=== PATIENT | female | born 1940 | race Caucasian/White ===

== ENCOUNTER 2023-09-23 07:35 | Emergency (ER) | payer MEDICARE, SELFPAY ==
[2023-09-23 07:38] VITALS: BP 144/71
[2023-09-23 08:02] VITALS: BP 138/69
[2023-09-23 08:04] VITALS: BMI 17.1
[2023-09-23 08:15] LABS: COVID-19 Antigen Negative (Negative)
[2023-09-23] MEDS: NSS 500 IV (09:09)
[2023-09-23 09:24] VITALS: BP 155/68
[2023-09-23 09:25] LABS: % Basophils 0.2 % (0-2); % Eosinophils 0.2 % (0-6); % Lymphocytes 11.9 % (20.5-51.1); % Monocytes 5.3 % (1.7-9.3); % Neutrophils 81.4 % (42.2-75.2); Absolute Immature Granulocytes 0.1 10^3/uL (0-0.05); Absolute Lymphocytes 1.5 10^3/uL (1.2-3.4); Absolute Monocytes 0.7 10^3/uL (0.1-0.6); Absolute Neutrophils 10.1 10^3/uL (1.4-6.5); Hematocrit 37.9 % (37.0-47.0); Mean Corp Hgb Conc. 34.3 g/dL (33.0-37.0); Mean Corpuscular Hgb 28.4 pg (27.0-31.0); Mean Corpuscular Volume 82.8 fL (81.0-99.0); Mean Platelet Volume 9.2 fL (7.4-10.4); Nucleated Red Blood Cells % 0 %; Platelet Count 273 10^3/uL (130-400); Red Blood Cell Count 4.58 10^6/uL (4.20-5.40); Red Cell Dist. Width 14.2 % (11.5-14.5); White Blood Cell Count 12.5 10^3/uL (4.8-10.8)
[2023-09-23 09:38] LABS: ALT (SGPT) 21 U/L (0-35); AST (SGOT) 39 U/L (14-36); Albumin 3.4 g/dl (3.5-5.0); Alkaline Phosphatase 64 U/L (38-126); Blood Urea Nitrogen 17 mg/dl (7-17); Calcium 8.5 mg/dl (8.4-10.2); Carbon Dioxide 32 mmol/L (22-30); Chloride 94 mmol/L (98-107); Estimated Creatinine Clearance 46 ml/min; Glucose 85 mg/dl (70-99); Potassium 3.1 mmol/L (3.5-5.1); Sodium 129 mmol/L (135-145); Total Bilirubin 1.1 mg/dl (0.2-1.3); Total Protein 6.2 g/dl (6.3-8.2); eGFR > 60.00
--- NOTE | 2023-09-23 09:54 | ED.GENMED ---
History of Present Illness
General
Chief Complaint: Breathing Problem
Source: patient
Exam Limitations: none
Time Seen by Provider: 09/23/23 07:49
Nursing documentation reviewed up to this point in time: agreed with
Travel History
Have you had any contact with someone who has COVID-19?: No
Do you have any symptoms of coronavirus? Fever > 100 degrees, chills, cough, shortness of breath, sore throat, loss of taste or smell, muscle aches, or headache?: Yes
Symptoms:: fever, cough
History of Present Illness
History of Present Illness:
PT IS A 83 Y/O f WITH H/O wpw, htn, hld, COPD NOT ON O2
here with uri sxs
started about 10 days ago with cough and presumed she had bronchitis, her was also sick. she said the cough was keeping her up so she contacted her PCP who called her in zithromax and medrol dose jimenez on 09/15
pt completed both medications and felt better but then 2 days ago she started having fever to 102 t max and aches, fatigue, mild SOB, nausea, diarrhea, and the cough was worse
it is dry mostly
no pleuritic pain, ches tpain, leg swelling, vomiting
Past History
Past History
ED Past Medical History: Asthma, COPD, HTN, Hypercholesterolemia, Other (PNA) and Other (tracheomalacia)
ED Past Surgical History: Appendectomy, Orthopedic and Tonsilectomy
Social History
Tobacco: Non-smoker
Alcohol: None
Drug: None
Personal:
Living: with family
Employment: Retired
Family History
Family History: Unable to obtain
Review of Systems
Review of Systems
Allergies reviewed?: Yes
All Other Systems: Not applicable
Phy Exam
Physical Exam
Physical Exam:
GENERAL: Alert , in no apparent distress, nontoxic
EYE: pupils equal and reactive
NECK: Supple
ENT: b/l TM s clear, pharynx erythematous but no tonsillar hypertrophy or exudates
CARDIAC: Regular rate and rhythm, no edema
LUNGS: rhonchorous sounding cough, no wheezes, no tachypnea, no resp distress;
ABDOMEN: Soft, without focal tenderness, no r/g, no cvat, normal bowel sounds
NEUROLOGICAL: Alert and oriented, no focal neuro deficits
SKIN: Warm and dry, skin intact.
MUSCULOSKELETAL: No edema, well perfused.
PSYCH: Normal and appropriate interaction.
Scores
Heart Failure Risk
Heart Failure Risk Score: Not Applicable
Course
Orders/Labs/Results
Orders:
Orders
09/23/23 07:53
COVID-19 Antigen Urgent
Source: Nasal Swab
Influenza A+B Rapid Molecular Urgent
MARYANNE Source: Nasal Swab
Specimen Description:
09/23/23 08:04
Electrocardiogram (*1) Urgent
Reason for Study: Shortness of Breath
EKG- Treatment ONCE
09/23/23 08:59
0.9% Sodium Chloride 500 ml [Nss] 500 ml IV BOLUS
CR Chest - 2 Views Urgent
Comment:
Reason For Exam: copd, fever
09/23/23 09:08
Complete Blood Count/With Diff Urgent
Comprehensive Metabolic Panel Urgent
Procalcitonin Urgent
PCT Algorithmm Indication: Respiratory
09/23/23 10:37
Potassium Chloride [KCl] 20 meq PO NOW STA
09/23/23 10:38
Oseltamivir Phosphate [Tamiflu] 75 mg PO NOW STA
Prednisone [Deltasone] 40 mg PO NOW STA
Abnormal Lab Results
09/23/23
09:08
WBC 12.5 H 10^3/uL
(4.8-10.8)
Abs Immat Gran (auto) 0.1 H 10^3/uL
(0-0.05)
Absolute Neuts (auto) 10.1 H 10^3/uL
(1.4-6.5)
Absolute Monos (auto) 0.7 H 10^3/uL
(0.1-0.6)
Immature Gran % 1.0 H %
(0-0.5)
Neutrophils % 81.4 H %
(42.2-75.2)
Lymphocytes % 11.9 L %
(20.5-51.1)
Sodium 129 L mmol/L
(135-145)
Potassium 3.1 L mmol/L
(3.5-5.1)
Chloride 94 L mmol/L
(98-107)
Carbon Dioxide 32 H mmol/L
(22-30)
Creatinine 0.5 L mg/dL
(0.6-1.0)
AST 39 H U/L
(14-36)
Total Protein 6.2 L g/dl
(6.3-8.2)
Albumin 3.4 L g/dl
(3.5-5.0)
09/23/23 09:08
09/23/23 09:08
Vital Signs
Initial and Last Documented VS:
Initial Vital Signs
Temp Pulse Resp BP Pulse Ox
98.2 F 109 18 144/71 98
09/23/23 07:38 09/23/23 07:38 09/23/23 07:38 09/23/23 07:38 09/23/23 07:38
Last Documented Vital Signs
Temp Pulse Resp BP Pulse Ox
98.9 F 85 16 167/78 98
09/23/23 08:13 09/23/23 10:56 09/23/23 10:56 09/23/23 10:56 09/23/23 10:56
MDM/Problems Addressed
Differential Diagnosis Includes:
pneumonia, FLU, covid, copd exac
MDM/Problems Addressed:
83 y/o F from [facility]
h/e copd
no o2
here with cough.uri x 10 days but better briefly after steroids and abx but got worse 2 days ago
fever, chills, fatigue, cough, diarhea
pt has no wheezing
no sob today, felt it las tnight but resolved with neb
Patient appears nontoxic, has a borderline temperature of 99.1, no hypoxia, no tachypnea, rhonchorous deep sounding cough. Her EKG is nonischemic, She has some flattening in V1 and V2 which is unchanged from baseline. Her chest x-ray was
independently reviewed by me and not found to have any infiltrate, radiology report reads that there is a area in the left base that could be atelectasis and less likely an early pneumonia. Patient tested positive for influenza A, she is mildly
hyponatremic and hypokalemic. I believe she was a little bit dehydrated and she was given some IV fluids. Discussed the case with ED attending. It is most likely that the patient got the flu 2 days ago when she became acutely symptomatic again.
This is less likely a pneumonia. Her procalcitonin is negative. Patient does have a leukocytosis which is expected after steroids and with this infection. She has mild hyponatremia, patient told to drink fluids with electrolytes. Her hypokalemia
is mild and 3.1 she will be given a dose of oral potassium here. Patient is requesting steroids because they tend to help her cough the most. Will give her 1 dose here and then 2 more doses for the next 2 days. I also discussed risk factors and
benefits for Tamiflu, patient is agreeable to starting the Tamiflu. She knows to stop it if she gets bad diarrhea. Patient is very adamantly requesting to be discharged home, she says she does not feel like she needs to be hospitalized. Follow-up
with primary encouraged, return precautions given
*Critical Care Note
Total Time (30-74mins, 75-104mins- exclusive of procedures): Not Applicable
ED Attending Note
-
Portions of this chart may have been created with voice recognition software.� Occasional wrong word or��sound alike� substitutions may have occurred due to the inherent limitations of voice recognition software.
Discharge Plan
Departure
Patient Disposition: Home (Routine Discharge)
Date of Disposition: 09/23/23
Time of Disposition: 10:45
Patient with high blood pressure during this ER visit?: Yes
Condition: Fair
Discharge Problem:
Influenza A, Hyponatremia
Instructions: Flu, Adult (DC), Hyponatremia (DC)
Prescriptions:
New
oseltamivir [Tamiflu] 75 mg capsule
75 mg PO BID 5 Days Qty: 10 0RF
prednisone 20 mg tablet
40 mg PO DAILY 2 Days Qty: 4 0RF
No Action
albuterol sulfate 1 PUFF HFA aerosol inhaler
1 puff inhalation R Q4HPRN PRN (Reason: sob)
Incruse Ellipta 62.5 MCG blister with device
2 puff IH R DAILY
atorvastatin 20 MG tablet
20 mg PO DAILY@1700
oxybutynin chloride 5 MG tablet extended release 24hr
5 mg PO DAILY@1700
irbesartan 300 MG tablet
300 mg PO DAILY@1700
Lumigan 1 DROP drops
1 drp BOTH EYES HS
guaifenesin [Mucus Relief ER] 600 MG tablet extended release 12hr
600 mg PO DAILY@1700
fluticasone furoate-vilanterol [Breo Ellipta] 1 EACH blister with device
2 puff IH R DAILY
albuterol sulfate 2.5 mg /3 mL (0.083 %) solution for nebulization
2.5 mg inhalation Q4H PRN (Reason: shortness of breath or wheezing) Qty: 90 2RF
Referrals:
UNKNOWN - PT DOES,NOT KNOW [Family Provider] -
Activity Restrictions/Additional Instructions:
Your symptoms are likely due to influenza A which is probably an acute infection from 2 days ago when he started spiking fevers.
Does not appear that you have pneumonia today.
Start Tamiflu twice a day for 5 days
starting tomorrow you can take prednisone once a day for 2 days. You were given a dose here. You can use your inhaler or your nebulizer every 4-6 hours for your cough. Follow-up with your doctor in the next week. Always consider returning for
worsening symptoms especially shortness of breath, any chest pain, fatigue, passing out, severe diarrhea etc. The Tamiflu can cause diarrhea. If this is too intense for you please stop it. You will not harm yourself by stopping it early.
Interventions
Interventions:
*Risk Screen - Suicide Last Done: 09/23/23 07:38
*General Assessment Last Done: 09/23/23 07:38
*Neglect/Abuse Screening Last Done: 09/23/23 07:38
ED- Fall Risk Assessment Last Done: 09/23/23 08:05
*ED COVID-19 Vaccine History Last Done: 09/23/23 07:44
*Nursing Disposition Last Done: 09/23/23 11:07
ED- Cardiac Assessment Last Done: 09/23/23 08:05
ED- Pulmonary Assessment Last Done: 09/23/23 08:05
Discharge Date and Time
Discharge Date/Time: 09/23/23 11:07
[2023-09-23 10:00] VITALS: BP 169/76
[2023-09-23 10:18] LABS: Procalcitonin < 0.05 ng/ml (0.0-0.25)
[2023-09-23] MEDS: KCL 20 MEQ PO (10:52)
[2023-09-23] MEDS: DELTASONE 40 MG PO (10:52)
[2023-09-23] MEDS: TAMIFLU 75 MG PO (10:52)
[2023-09-23 10:56] VITALS: BP 167/78
== END 2023-09-23 11:07 | disposition home or self-care (01) ==
LOC: EMR 07:35
PROVIDERS: Physician Assistant; EMERGENCY PHYSICIAN Emergency Medicine
DX: J10.1 Influenza due to other identified influenza virus with other respiratory manifestations (principal); E87.1 Hypo-osmolality and hyponatremia; I10 Essential (primary) hypertension; E78.00 Pure hypercholesterolemia, unspecified; R05.9 Cough, unspecified; J44.1 Chronic obstructive pulmonary disease with (acute) exacerbation; E86.0 Dehydration; E87.6 Hypokalemia; Z90.49 Acquired absence of other specified parts of digestive tract
CPT/HCPCS: 99283; 96360; 71046; 80053; 84145; 85025; 87502; 87811; 93005

== ENCOUNTER 2023-09-30 22:28 | Inpatient (IN) | payer MEDICARE, SELFPAY ==
[2023-09-30] VITALS (9 sets, daily range): BP systolic 114–174; BP diastolic 58–75; BMI 17.7
[2023-09-30] MEDS: NSS 500 IV (19:27)
--- NOTE | 2023-09-30 19:32 | ED.GENMED ---
History of Present Illness
General
Chief Complaint: Cold/Flu/URI Symptoms
Source: patient
Exam Limitations: none
Time Seen by Provider: 09/30/23 18:04
Nursing documentation reviewed up to this point in time: agreed with
Travel History
Have you had any contact with someone who has COVID-19?: No
Do you have any symptoms of coronavirus? Fever > 100 degrees, chills, cough, shortness of breath, sore throat, loss of taste or smell, muscle aches, or headache?: No
History of Present Illness
History of Present Illness:
The patient is a pleasant 83-year-old female comes in with complaints of persistent fever, nausea and bodyaches for about 1 week. Patient reports she tested positive for influenza. She denies vomiting but states she just feels nauseous. She
reports an ongoing cough which seems slightly better than it was a few days ago. She denies diarrhea. She reports she has not taken any Tylenol or Motrin. Patient reports she is able to drink fluids. She denies any urinary symptoms such as
burning or frequency. She denies abdominal pain. She denies difficulty breathing.
Past History
Past History
ED Past Medical History: Asthma, COPD, HTN, Hypercholesterolemia, Other (PNA) and Other (tracheomalacia)
ED Past Surgical History: Appendectomy, Orthopedic and Tonsilectomy
Social History
Tobacco: Non-smoker
Alcohol: None
Drug: None
Personal:
Living: with family
Employment: Retired
Family History
Family History: Unable to obtain
Review of Systems
Review of Systems
Allergies reviewed?: Yes
All Other Systems: ROS reviewed and negative except as documented in HPI and ROS
Constitutional: Reports fever and fatigue
EENT: Reports no symptoms
Respiratory: Reports cough
Cardiac: Reports no symptoms
ABD/GI: Reports nausea and anorexia
: Reports no symptoms
Musculoskeletal: Reports muscle stiffness
Skin: Reports no symptoms
Neurological: Reports no symptoms
Endocrine: Reports no symptoms
Hematologic/Lymphatic: Reports no symptoms
Psychiatric: Reports no symptoms
Phy Exam
Physical Exam
Physical Exam:
Physical Exam
General: no apparent distress, not acutely ill. Nontoxic, conversational
Neck: supple. no meningeal signs. normal psoterior pharynx
Heart: Tachycardic
Lungs: no acute respiratory distress. Coughing but speaks in full sentences. Mild rhonchi. No wheezing no tachypnea
Abdomen: normal bowel sounds. not tender. no CVAT
Neuro: alert and oriented. no focal neurological deficits
Skin: no rash
Psychiatric: well kept. interactive and cooperative
Extremities: no edema. no calf tenderness. negative homans. good distal pulses
Course
Orders/Labs/Results
Orders:
Orders
09/30/23 18:55
Ketorolac [Toradol] 15 mg IV NOW STA
09/30/23 18:56
0.9% Sodium Chloride 500 ml [Nss] 500 ml IV BOLUS
Acetaminophen [Tylenol] 650 mg PO NOW STA
09/30/23 18:57
CR Chest - 2 Views Urgent
Comment:
Reason For Exam: cough
09/30/23 19:28
Complete Blood Count/With Diff Urgent
Comprehensive Metabolic Panel Urgent
09/30/23 19:29
Ondansetron Injectable [Zofran] 4 mg IV NOW STA
Abnormal Lab Results
09/30/23
19:28
WBC 16.3 H 10^3/uL
(4.8-10.8)
RBC 4.09 L 10^6/uL
(4.20-5.40)
Hgb 11.4 L g/dL
(12.0-16.0)
Hct 33.1 L %
(37.0-47.0)
MCV 80.9 L fL
(81.0-99.0)
Abs Immat Gran (auto) 0.1 H 10^3/uL
(0-0.05)
Absolute Neuts (auto) 14.0 H 10^3/uL
(1.4-6.5)
Absolute Lymphs (auto) 1.0 L 10^3/uL
(1.2-3.4)
Absolute Monos (auto) 1.0 H 10^3/uL
(0.1-0.6)
Immature Gran % 0.7 H %
(0-0.5)
Neutrophils % 86.3 H %
(42.2-75.2)
Lymphocytes % 6.4 L %
(20.5-51.1)
Sodium 125 L mmol/L
(135-145)
Potassium 3.2 L mmol/L
(3.5-5.1)
Chloride 94 L mmol/L
(98-107)
BUN 22 H mg/dl
(7-17)
Creatinine 0.4 L mg/dL
(0.6-1.0)
Glucose 111 H mg/dl
(70-99)
Calcium 7.8 L mg/dl
(8.4-10.2)
AST 46 H U/L
(14-36)
Total Protein 5.6 L g/dl
(6.3-8.2)
Albumin 2.6 L g/dl
(3.5-5.0)
09/30/23 19:28
09/30/23 19:28
Vital Signs
Initial and Last Documented VS:
Initial Vital Signs
Temp Pulse BP Pulse Ox
99.3 F 106 145/75 84
09/30/23 17:02 09/30/23 17:02 09/30/23 17:02 09/30/23 17:02
Last Documented Vital Signs
Temp Pulse Resp BP Pulse Ox
99.6 F 93 25 145/59 97
09/30/23 20:33 09/30/23 20:00 09/30/23 20:00 09/30/23 20:31 09/30/23 20:45
MDM/Problems Addressed
Differential Diagnosis Includes:
Dehydration, pneumonia, acute renal failure, viral syndrome
MDM/Problems Addressed:
Patient presents with acute fatigue, cough, and bodyaches
Chronic conditions affecting care:
Given patient has a history of COPD she could be at increased risk of pneumonia
Acute Exacerbation and/or Progression of Chronic Illness:
Patient may have shortness of breath and cough related to COPD exacerbation
Acute Exacerbation and/or Progression of Chronic Illness: HTN
*Radiology
Radiology exam reviewed: preliminary read by ED provider (Bilateral infiltrates seen. Chest x-ray read by me)
*Pulse Oximetry
Patient hypoxic: yes
*EKG
Interpreted by ED Provider?: NA
*Supervisor Type Photography Interpretation
Rate: normal
Interpretation: normal
Rhythm: sinus
*Critical Care Note
Total Time (30-74mins, 75-104mins- exclusive of procedures): 35 minutes
comment:
35 minutes of critical care given to the patient including frequent reassessments of her pulse ox, reviewing her prior chest x-ray and chest x-ray from [facility] which now shows pneumonia, reviewing her blood work, as well as counseling the patient
Data Reviewed
Review of Other/Old Records Reveals: Labs (Labs from 09/23/23 show influenza A positive and COVID-negative)
Source: patient
Patient Management
Social determinants of health affecting care: Living situation
Discussion with other providers: Hospitalist
ED Attending Note
-
Portions of this chart may have been created with voice recognition software.� Occasional wrong word or��sound alike� substitutions may have occurred due to the inherent limitations of voice recognition software.
Discharge Plan
Departure
Patient Disposition: Admit
Date of Disposition: 09/30/23
Time of Disposition: 21:08
Admit to: Med/Surg
Presentation/result/management discussed w/ accepting MD/DO: Hospitalist
Patient with high blood pressure during this ER visit?: Yes
Condition: Good
Covid-19: Negative COVID-19
Discharge Problem:
Acute hypoxic respiratory failure, Pneumonia
Prescriptions:
No Action
albuterol sulfate 1 PUFF HFA aerosol inhaler
1 puff inhalation R Q4HPRN PRN (Reason: sob)
Incruse Ellipta 62.5 MCG blister with device
2 puff IH R DAILY
atorvastatin 20 MG tablet
20 mg PO DAILY@1700
oxybutynin chloride 5 MG tablet extended release 24hr
5 mg PO DAILY@1700
irbesartan 300 MG tablet
300 mg PO DAILY@1700
Lumigan 1 DROP drops
1 drp BOTH EYES HS
guaifenesin [Mucus Relief ER] 600 MG tablet extended release 12hr
600 mg PO DAILY@1700
fluticasone furoate-vilanterol [Breo Ellipta] 1 EACH blister with device
2 puff IH R DAILY
albuterol sulfate 2.5 mg /3 mL (0.083 %) solution for nebulization
2.5 mg inhalation Q4H PRN (Reason: shortness of breath or wheezing) Qty: 90 2RF
oseltamivir [Tamiflu] 75 mg capsule
75 mg PO BID 5 Days Qty: 10 0RF
prednisone 20 mg tablet
40 mg PO DAILY 2 Days Qty: 4 0RF
Referrals:
Stone Guerrier MD [Family Provider] -
Interventions
Interventions:
*Risk Screen - Suicide Last Done: 09/30/23 18:09
*General Assessment Last Done: 09/30/23 18:09
*Neglect/Abuse Screening Last Done: 09/30/23 18:09
ED- Fall Risk Assessment Last Done: 09/30/23 18:09
*ED COVID-19 Vaccine History Last Done: 09/30/23 17:05
ED- Pulmonary Assessment Last Done: 09/30/23 18:09
[2023-09-30 19:34] LABS: % Basophils 0.2 % (0-2); % Eosinophils 0.1 % (0-6); % Immature Granulocytes 0.7 % (0-0.5); % Lymphocytes 6.4 % (20.5-51.1); % Monocytes 6.3 % (1.7-9.3); % Neutrophils 86.3 % (42.2-75.2); Absolute Immature Granulocytes 0.1 10^3/uL (0-0.05); Hematocrit 33.1 % (37.0-47.0); Hemoglobin 11.4 g/dL (12.0-16.0); Mean Corp Hgb Conc. 34.4 g/dL (33.0-37.0); Mean Corpuscular Hgb 27.9 pg (27.0-31.0); Mean Corpuscular Volume 80.9 fL (81.0-99.0); Mean Platelet Volume 9.1 fL (7.4-10.4); Nucleated Red Blood Cells % 0 %; Platelet Count 392 10^3/uL (130-400); Red Blood Cell Count 4.09 10^6/uL (4.20-5.40); Red Cell Dist. Width 13.5 % (11.5-14.5); White Blood Cell Count 16.3 10^3/uL (4.8-10.8)
[2023-09-30] MEDS: ZOFRAN 4 MG IV (19:35)
[2023-09-30] MEDS: TORADOL 15 MG IV (19:35)
[2023-09-30] MEDS: TYLENOL 650 MG PO (19:36)
[2023-09-30 19:47] LABS: ALT (SGPT) 22 U/L (0-35); AST (SGOT) 46 U/L (14-36); Albumin 2.6 g/dl (3.5-5.0); Alkaline Phosphatase 72 U/L (38-126); Blood Urea Nitrogen 22 mg/dl (7-17); Calcium 7.8 mg/dl (8.4-10.2); Carbon Dioxide 26 mmol/L (22-30); Chloride 94 mmol/L (98-107); Glucose 111 mg/dl (70-99); Potassium 3.2 mmol/L (3.5-5.1); Sodium 125 mmol/L (135-145); Total Bilirubin 1.3 mg/dl (0.2-1.3); Total Protein 5.6 g/dl (6.3-8.2); eGFR > 60.00
--- NOTE | 2023-09-30 21:46 | HPS.HSE ---
Family Physician
-
Family Physician: Stone Guerrier
Chief Complaint
-
Shortness of breath, cough and fever
History of Present Illness
83-year-old female with history of COPD and was diagnosed with influenza A last week in the hospital lives independently at home with her , presented back to the hospital complaining of generalized weakness, malaise, fever and chills and
cough productive of clear yellowish phlegm in the last few day. Overall feeling her cough is better despite coming back to the hospital, denies any chest pain admit fatigue and poor appetite denies any urinary or GI symptoms,
She was treated with Tamiflu, steroids and breathing treatment and discharged home from the ER.
Workup in the ER basically concerning for infiltration of the both leg. X-ray while white cell count is 16,000 and sodium level is 125.
She is awake, alert and oriented,Her oxygen saturation was 84 on room air. Improved with oxygen supplement
Medical History
Past Medical History
Past Medical History: Reports Other
Additional Past Medical History:
Past medical history reviewed:
COPD
Pretension
Dyslipidemia
Hyperactive bladder
Social history: Lives at home with independently, no smoking alcohol use
Family history: Reviewed and noncontributory
Past Surgical History: Reports Other
Social History
Tobacco: Other
Family History
Family History: Other
Allergies / Home Medications
Allergies reflects when Allergies were last updated in [facility].
Home Medications with original date entered in [facility]
Allergy/Medication List:
Allergies
Allergy/AdvReac Type Severity Reaction Status Date / Time
levofloxacin [From Levaquin] Allergy Rash Verified 09/30/23 17:07
streptomycin Allergy Rash Verified 09/30/23 17:07
sulfamethoxazole Allergy Rash Verified 09/30/23 17:07
[From Bactrim]
trimethoprim [From Bactrim] Allergy Rash Verified 09/30/23 17:07
Home Medications
albuterol sulfate 90 mcg/actuation aerosol inhaler 1 puff inhalation R Q4HPRN PRN sob 11/08/13
umeclidinium 62.5 mcg/actuation blister powder for inhalation (Incruse Ellipta) 2 puff IH R DAILY 06/12/18
atorvastatin 20 mg tablet 20 mg PO DAILY@169904/03/19
bimatoprost 0.01 % eye drops (Lumigan) 1 drp BOTH EYES HS 04/03/19
fluticasone furoate 200 mcg-vilanterol 25 mcg/dose inhalation powder (Breo Ellipta) 2 puff IH R DAILY 04/03/19
guaifenesin 600 mg tablet, extended release 12 hr (Mucus Relief ER) 600 mg PO DAILY@169904/03/19
irbesartan 300 mg tablet 300 mg PO DAILY@169904/03/19
oxybutynin chloride 5 mg tablet,extended release 24 hr 5 mg PO DAILY@169904/03/19
albuterol sulfate 2.5 mg/3 mL (0.083 %) solution for nebulization 2.5 mg (3 mL) inhalation Q4H PRN shortness of breath or wheezing #90 mL 05/31/23
oseltamivir 75 mg capsule (Tamiflu) 75 mg PO BID 5 days #10 caps 09/23/23
prednisone 20 mg tablet 40 mg PO DAILY 2 days #4 tabs 09/23/23
Review of Systems
-
A 12 point ROS was completed and negative except as noted: Yes
Physical Exam
Vital Signs
Vital Signs
Temp Pulse Resp BP Pulse Ox
99.6 F 93 25 145/59 97
09/30/23 20:33 09/30/23 20:00 09/30/23 20:00 09/30/23 20:31 09/30/23 20:45
physical exam:
General: Awake, alert and oriented x3, not in distress and holds appropriate conversation.
HEENT: No active discharge, ecchymosis or bruising, moist lips, tongue and mucous membrane.
Eyes: No discharge or red conjunctiva, no nystagmus, pupils are reactive and equal
Neck:Supple, no JVD no bruit no goiter.
Respiratory: Normal AP contour and diameter, normal chest wall movement, normal respiratory effort, no respiratory distress,
Lungs: Diminished air entry bilaterally, bilateral wheezing and rhonchi, no crackles or rails
Heart: S1, S2 regular, normal rate, no added sound.
Gastrointestinal: Positive bowel sounds, soft, nontender, no guarding or rigidity or organomegaly
Musculoskeletal: , no chest wall abnormality or tenderness. All joints and extremities have good range of motion, no muscle tenderness or any joint swelling or tenderness.
Extremities: No pitting edema, good peripheral pulses, good range of motion
Skin: Warm and dry, no ulceration, normal color.
Neurological: Awake, alert and oriented x3, no facial droop, speech clear and comprehensive, good muscle tone, normal sensory and motor function
Psychiatric: Normal mood, normal thought and judgment, normal affect,
Physical Exam
General: Other
Laboratory Results
-
09/30/23 19:28
09/30/23 19:28
Laboratory Results
Total Bilirubin 1.3 mg/dl (0.2-1.3) 09/30/23 19:28
AST 46 U/L (14-36) H 09/30/23 19:28
ALT 22 U/L (0-35) 09/30/23 19:28
Alkaline Phosphatase 72 U/L (38-126) 09/30/23 19:28
Chest x-ray: Pending official report, show hyperinflated lung was mild patchy infiltration per MAR review, please refer to radiologist report once available.
Data Reviewed
-
Diagnostic Radiology: Image Personally Visualized and interpreted and Discussed with Patient
Lab Data: Labs Reviewed by me and Discussed with Patient
Old Records: Reviewed
Impression/Plan
-
IMPRESSION:
83-year-old female with history of COPD and recently diagnosed with influenza A, presented back to the hospital as she is still not feeling fully recovered admitting fever, chills and cough, workup in the ER concerning for sepsis with hypoxia and
leukocytosis.
Sepsis with hypoxia O2 sat was 84 and was a count 16,000 likely secondary to pneumonia.
Pneumonia
Acute hypoxic failure
Recent influenza
History of COPD
Hypertension
Hyponatremia
Moderate protein caloric malnutrition as albumin is 2.4
Hypocalcemia was corrected calcium is antonette be more than 8.5
PLAN:
Managed per sepsis protocol
IV fluid
IV Rocephin and Zithromax
Blood culture
Lactic acid
Check procalcitonin level
DuoNeb 4 times daily
Drawn 4 mg every 8 hour
Cough medication
Monitor vital sign
Recheck lab
Oxygen and try to wean off as needed
All discussed with the patient in detail expressed understanding
CODE STATUS full code
DVT prophylax Lovenox
[2023-09-30] MEDS: ROCEPHIN 1000 MG IV (21:50)
[2023-09-30] MEDS: ZITHROMAX INFUSION 250 IV (22:08)
--- NOTE | 2023-09-30 23:05 | PTCARENOTE ---
Pt arrived from ED via stretcher and ambulated to bed. Pt is AAOx3, VSS on 2L NC sating 99%, w/o complaints of pain. Pt is oriented to room resting comfortably w/ call monahan within reach.
[2023-09-30] MEDS: NSS 1000 IV (23:38)
[2023-09-30] MEDS: MUCINEX 600 MG PO (23:56)
[2023-09-30] MEDS: LUMIGAN 0.01% 1 DROP BOTH EYES (23:56)
[2023-09-30] MEDS: DECADRON 4 MG IV (23:57)
[2023-10-01 00:43] LABS: Lactic Acid 1.1 mmol/L (0.7-2.0)
[2023-10-01] MEDS: KCL 270 MEQ IV (01:03)
[2023-10-01 01:33] LABS: COVID-19 Antigen Negative (Negative)
[2023-10-01 04:19] LABS: Lactic Acid 0.9 mmol/L (0.7-2.0)
[2023-10-01] MEDS: DECADRON 4 MG IV ×2 (06:01→17:01)
[2023-10-01 07:07] LABS: % Basophils 0.2 % (0-2); % Immature Granulocytes 0.8 % (0-0.5); % Lymphocytes 3.4 % (20.5-51.1); % Monocytes 1.5 % (1.7-9.3); % Neutrophils 94.1 % (42.2-75.2); Absolute Immature Granulocytes 0.1 10^3/uL (0-0.05); Absolute Lymphocytes 0.4 10^3/uL (1.2-3.4); Absolute Monocytes 0.2 10^3/uL (0.1-0.6); Absolute Neutrophils 11.2 10^3/uL (1.4-6.5); Hematocrit 30.3 % (37.0-47.0); Hemoglobin 10.2 g/dL (12.0-16.0); Mean Corp Hgb Conc. 33.7 g/dL (33.0-37.0); Mean Corpuscular Hgb 28.2 pg (27.0-31.0); Mean Corpuscular Volume 83.7 fL (81.0-99.0); Mean Platelet Volume 9.5 fL (7.4-10.4); Nucleated Red Blood Cells % 0 %; Platelet Count 338 10^3/uL (130-400); Red Blood Cell Count 3.62 10^6/uL (4.20-5.40); Red Cell Dist. Width 13.5 % (11.5-14.5); White Blood Cell Count 11.9 10^3/uL (4.8-10.8)
[2023-10-01 07:48] VITALS: BP 125/65
[2023-10-01] MEDS: SPIRIVA RESPIMAT 2.5 MCG 2 PUFF INH (08:21)
[2023-10-01] MEDS: VENTOLIN NEBULES INH (09:27)
--- NOTE | 2023-10-01 10:43 | W.PN.HOSP.TC ---
Today's Communication/Plan
-
see A/P
Assessment / Plan
Assessment / Plan
83-year-old female with history of COPD and was diagnosed with influenza A last week in the hospital lives independently at home with her , presented back to the hospital complaining of generalized weakness, malaise, fever/chills and cough
productive of clear yellowish phlegm in the last few day.�
Overall feeling her cough is better despite coming back to the hospital, denies any chest pain admit fatigue and poor appetite denies any urinary or GI symptoms,
She was treated with Tamiflu, steroids and breathing treatment and discharged home from the ER.
Workup in the ER concerning for infiltration of both lungs. White cell count is 16,000 and sodium level is 125.
She is awake, alert and oriented,Her oxygen saturation was 84 on room air.� Improved with oxygen supplement
A/P:
# Sepsis POA likely due to post-viral bacterial community acquired pneumonia
# Acute hypoxic resp insufficiency
# Recent influenza infection s/p 5 days Tamiflu
# History of COPD
Cont O2 support at 1L NC and wean as tolerated, she is not on home o2
s/p IV fluid
Cont IV Rocephin and Zithromax
Check Blood culture, MRSA screen, procalcitonin level
Cont DuoNebs ATC and PRN.
decrease Decadron from 4 IV Q8H to Q12H
Cont Mucinex
Add Vest therapy
# Hypertension
BP stable
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
# Hyponatremia suspect SIADH related to CAP
Sodium level 125 today, from 129 on admission
fluid restrict to 48 oz
# hypokalemia
replete K
check mag level
# Moderate protein caloric malnutrition as albumin is 2.4
# Hypocalcemia was corrected calcium is antonette be more than 8.5
# Mild AST suspect reactive
monitor
CODE STATUS full code
DVT prophylax Lovenox SQ
Anticipated Discharge: > 48 hours
Subjective/Interval History
-
Date of Service: October 01, 2023
Objective Data
-
Labs:
Laboratory Results
10/01/23
06:31
WBC 11.9 H
Hgb 10.2 L
Hct 30.3 L
Plt Count 338
Vital Signs:
Vital Signs
Temp Pulse Resp BP Pulse Ox
36.3 C 70 16 125/65 96
10/01/23 07:48 10/01/23 08:25 10/01/23 08:25 10/01/23 07:48 10/01/23 08:25
Review of Systems
-
Respiratory: Reports Cough and Trouble Breathing
Physical Exam
-
General: Well Developed, Well Nourished, Comfortable, Respiratory Distress (mild) and Conversant
HEENT: Normocephalic, Atraumatic, Nose Appears Normal, Ears Appear Normal and Oxygen (1L NC)
Respiratory: Clear to Auscultation and Non Labored Respirations; Negative Wheezes or Accessory Resp Muscle Use
Cardiac: Regular Rhythm and S1/S2
GI: Soft, Nontender, Nondistended and Normal Bowel Sounds
Skin: Warm and Dry
Neuro: Awake, Alert, Oriented and AO x 3
Psych: Calm and Intact Judgement/Insight
Data Reviewed
-
Diagnostic Radiology: Image personally visualized and interpreted and Report Reviewed by me
Labs: Labs Reviewed by me
[2023-10-01] MEDS: MUCINEX PO (10:47)
[2023-10-01] MEDS: KCL 40 MEQ PO (11:17)
[2023-10-01] MEDS: VENTOLIN NEBULES 2.5 MG INH (11:27)
[2023-10-01] MEDS: DUONEB INH (11:33)
[2023-10-01 11:46] LABS: Magnesium 2.1 mg/dl (1.6-2.3)
[2023-10-01 12:00] LABS: Procalcitonin 0.05 ng/ml (0.0-0.25)
[2023-10-01] MEDS: DUONEB 3 ML INH ×2 (15:37→19:21)
[2023-10-01 16:54] VITALS: BP 118/64
[2023-10-01] MEDS: LIPITOR 20 MG PO (17:01)
[2023-10-01] MEDS: DITROPAN 5 MG PO (17:01)
[2023-10-01] MEDS: LOVENOX 40 MG SC (17:01)
[2023-10-01] MEDS: AVAPRO 300 MG PO (17:17)
[2023-10-01 20:00] VITALS: BP 121/56
[2023-10-01] MEDS: ROCEPHIN 1000 MG IV (21:54)
[2023-10-01] MEDS: MUCINEX 600 MG PO (21:54)
[2023-10-01] MEDS: LUMIGAN 0.01% 1 DROP BOTH EYES (21:54)
[2023-10-01] MEDS: ZITHROMAX INFUSION 250 IV (21:55)
[2023-10-01] MEDS: STERILE WATER FOR INJECTION 10 ML IV (21:55)
[2023-10-01 23:32] VITALS: BP 110/59
[2023-10-02] MEDS: DECADRON 4 MG IV (05:15)
[2023-10-02 07:15] VITALS: BP 128/62
[2023-10-02] MEDS: DUONEB 3 ML INH ×2 (07:58→11:23)
[2023-10-02 08:24] LABS: Hematocrit 29.7 % (37.0-47.0); Hemoglobin 10.1 g/dL (12.0-16.0); Mean Corpuscular Volume 82.3 fL (81.0-99.0); Mean Platelet Volume 9.6 fL (7.4-10.4); Platelet Count 444 10^3/uL (130-400); Red Blood Cell Count 3.61 10^6/uL (4.20-5.40); Red Cell Dist. Width 13.7 % (11.5-14.5); White Blood Cell Count 17.8 10^3/uL (4.8-10.8)
[2023-10-02] MEDS: MUCINEX 600 MG PO (08:35)
[2023-10-02 08:55] LABS: Sodium 135 mmol/L (135-145)
[2023-10-02 08:56] LABS: ALT (SGPT) 33 U/L (0-35); AST (SGOT) 75 U/L (14-36); Albumin 2.6 g/dl (3.5-5.0); Alkaline Phosphatase 97 U/L (38-126); Blood Urea Nitrogen 23 mg/dl (7-17); Calcium 8.5 mg/dl (8.4-10.2); Carbon Dioxide 27 mmol/L (22-30); Chloride 100 mmol/L (98-107); Direct Bilirubin 0.1 mg/dl (0.0-0.4); Estimated Creatinine Clearance 50 ml/min; Glucose 140 mg/dl (70-99); Magnesium 2.4 mg/dl (1.6-2.3); Potassium 4.5 mmol/L (3.5-5.1); Total Bilirubin 0.3 mg/dl (0.2-1.3); Total Protein 5.7 g/dl (6.3-8.2); eGFR > 60.00
--- NOTE | 2023-10-02 14:33 | W.PN.HOSP.TC ---
Today's Communication/Plan
-
d/c
Assessment / Plan
Assessment / Plan
pt is an 83 year old female
Sepsis with Acute hypoxic resp insufficiency POA likely due to post-viral (Recent influenza infection s/p 5 days Tamiflu) bacterial community acquired pneumonia--off O2--change rocephin/zmax to oral meds--OK for d/c--cultures negative--procal
neg--OK for d/c
History of COPD
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
Hyponatremia suspect SIADH related to CAP--Sodium level 125 today, from 129 on admission--fluid restrict to 48 oz--improved to 135
hypokalemia--replete K
Moderate protein caloric malnutrition as albumin is 2.4
Hypocalcemia was corrected calcium is antonette be more than 8.5
Mild AST suspect reactive--monitor
CODE STATUS full code
DVT prophylax Lovenox SQ
Anticipated Discharge: Today
Subjective/Interval History
-
Date of Service: October 02, 2023
pt breathing much improved--off O2
Objective Data
-
Labs:
Laboratory Results
10/02/23
07:52
WBC 17.8 H
Hgb 10.1 L
Hct 29.7 L
Plt Count 444 H D
Sodium 135 D
Potassium 4.5 D
Chloride 100
Carbon Dioxide 27
BUN 23 H
Creatinine 0.4 L
Glucose 140 H
Calcium 8.5
Total Bilirubin 0.3 D
AST 75 H
ALT 33
Alkaline Phosphatase 97
Vital Signs:
max temp for 24 hours
10/01/23
20:00
Temp 97.7 F
Vital Signs
Temp Pulse Resp BP Pulse Ox
97.3 F 77 16 128/62 95
10/02/23 07:15 10/02/23 11:26 10/02/23 11:26 10/02/23 07:15 10/02/23 11:26
I&O
10/01/23 10/02/23 10/03/23
06:59 06:59 06:59
Intake Total 490 / 490
Balance 490 / 490
Review of Systems
-
All other systems: Reviewed and negative
Physical Exam
-
General: Well Developed, Well Nourished and No Apparent Distress
HEENT: Normocephalic and Atraumatic
Respiratory: Rhonchi; Negative Clear to Auscultation or Wheezes
Cardiac: Regular Rhythm, S1/S2 and Murmur
GI: Soft, Nontender, Nondistended and Normal Bowel Sounds
Musculoskeletal: No Clubbing, No Cyanosis and No Edema
Skin: Warm
Neuro: Awake
Psych: Calm
--- NOTE | 2023-10-02 14:41 | CM ---
Patient seen at bedside with physician. Patient stating she wants to go home, IMM completed and placed on chart. Patient declined VN supports at home. Patient states that she lives with her in a 2 story home. Patient has a nebulizer at home
per past medical records. PCP Dr. Guerrier and she uses the [facility] in [place]. CM will continue to follow for discharge planning needs.
Plan; home with no needs
[2023-10-02] MEDS: DUONEB INH (15:22)
[2023-10-02 15:29] VITALS: BP 133/72
--- NOTE | 2023-10-02 17:10 | W.DCSUMMARY ---
Discharge Summary
Discharge Data
Date of Admission: 09/30/23
Date of Discharge: 10/02/23
-
Pending Results: No
Hospital Course
Primary care physician : Stone Guerrier
Principal Discharge diagnosis : Sepsis with acute hypoxemic respiratory insufficiency likely due to postviral bacterial community-acquired pneumonia, hyponatremia/hypokalemia
Chronic Discharge diagnosis : Chronic obstructive pulmonary disease, essential hypertension, moderate protein calorie malnutrition, hypocalcemia
Hospital Course : Patient is an 83-year-old female with a history of chronic obstructive pulmonary disease who was diagnosed with influenza A the week prior to admission and completed her Tamiflu. She presented with generalized weakness, fever and
chills, and cough productive of clear yellowish phlegm. Workup in the emergency department showed her to have infiltrates of both lungs. White count was 16,000 patient was admitted.
Problem #1: Sepsis with acute hypoxemic respiratory insufficiency likely due to post viral bacterial community-acquired pneumonia. Patient was started on Rocephin and Zithromax. Oxygen requirements on admission were weaned to room air at
discharge. Cultures were negative. Procalcitonin was negative. Patient is feeling much improved. She will be transitioned to oral Keflex at discharge.
Problem #2: Hyponatremia/hypokalemia. Sodium level was 129 on admission, dropped to 125 and patient was placed on a fluid restriction. This improved to 135 on the day of discharge. Likely due to syndrome of inappropriate antidiuretic hormone
secretion from community-acquired pneumonia. Potassium was repleted as needed.
Problem #3: All other medical issues. These include chronic obstructive pulmonary disease, send hypertension, moderate protein calorie malnutrition and hypocalcemia. These medical issues were stable during her hospitalization. Medications were
continued as able.
Patient is stable for discharge home at this time. If there are any questions regarding this dictation or her hospital stay, please not hesitate to call. Our office number is [phone].
Important imaging findings :
CXR IMPRESSION:
There is moderate lingular and left lower lobe pneumonia
There is mild interstitial pneumonia medial right lung base
Discharge Plan
-
Patient Disposition: Home (Routine Discharge)
Discharge Diagnosis/Procedures: Sepsis with acute hypoxemic respiratory insufficiency due to recent influenza infection, history of chronic obstructive pulmonary disease, essential hypertension, hyponatremia resolved, hypokalemia, moderate protein
calorie malnutrition, hypocalcemia
Condition: Good
Diet: As tolerated, Regular and Restrict fluids to 48 oz
Activity: As tolerated
Driving Restrictions: As prior to admission
Bathing Restrictions: None
Blood Work: Would obtain BMP in 1 week--prescription through primary care physician office
Referrals:
Stone Guerrier MD [Family Provider] - in less than 1 week
Prescriptions:
New
prednisone 10 mg Tablet
See Rx Instructions .ROUTE .COMPLEX Qty: 30 0RF
Rx Instructions:
Take By Mouth:
40 mg daily x3 days, 30 mg daily x3 days,
20 mg daily x3 days, 10 mg daily x3 days.
cephalexin 500 mg capsule
500 mg PO TID Qty: 21 0RF
Continued
albuterol sulfate 1 PUFF HFA aerosol inhaler
1 puff inhalation R Q4HPRN PRN (Reason: sob)
Incruse Ellipta 62.5 MCG blister with device
2 puff IH R DAILY
atorvastatin 20 MG tablet
20 mg PO QPM
oxybutynin chloride 5 MG tablet extended release 24hr
5 mg PO DAILY@1700
irbesartan 300 MG tablet
300 mg PO DAILY@1700
Lumigan 1 DROP drops
1 drp BOTH EYES HS
guaifenesin [Mucus Relief ER] 600 MG tablet extended release 12hr
600 mg PO DAILYPRN PRN (Reason: cough)
fluticasone furoate-vilanterol [Breo Ellipta] 1 EACH blister with device
2 puff IH R DAILY
albuterol sulfate 2.5 mg /3 mL (0.083 %) solution for nebulization
2.5 mg inhalation R Q4HPRN PRN (Reason: shortness of breath or wheezing)
Discharge Orders:
Discharge Patient (As Directed); Ordered 10/02/23
Ordered By: Sonia Norton
Discharge Date and Time
Discharge Date/Time: 10/02/23 15:51
== END 2023-10-02 15:51 | disposition home or self-care (01) | DRG 871 ==
LOC: 4 EAST ACU 22:28
PROVIDERS: Internal Medicine; Nurse Practitioner Family; ADMITTING PHYSICIAN Internal Medicine; ATTENDING PHYSICIAN Internal Medicine; EMERGENCY PHYSICIAN Emergency Medicine; FAMILY PHYSICIAN Internal Medicine
DX: A41.9 Sepsis, unspecified organism (principal); J15.9 Unspecified bacterial pneumonia; E44.0 Moderate protein-calorie malnutrition; Z68.1 Body mass index [BMI] 19.9 or less, adult; E22.2 Syndrome of inappropriate secretion of antidiuretic hormone; J44.0 Chronic obstructive pulmonary disease with (acute) lower respiratory infection; J84.9 Interstitial pulmonary disease, unspecified; I10 Essential (primary) hypertension; E83.51 Hypocalcemia; E87.6 Hypokalemia; R06.89 Other abnormalities of breathing; R09.02 Hypoxemia; Z11.52 Encounter for screening for COVID-19
CPT/HCPCS: 71046; 80053; 82248; 83605; 83735; 84145; 85025; 85027; 87040; 87070; 87811; 94640; 94669; 96361; 96365; 96375; 99291

== ENCOUNTER → 2023-11-04 10:38 | Outpatient (REF) | payer MEDICARE, SELFPAY | LOC: RAD 10:38 | PROVIDERS: ATTENDING PHYSICIAN Internal Medicine | DX: J18.9 Pneumonia, unspecified organism (principal); J44.1 Chronic obstructive pulmonary disease with (acute) exacerbation | CPT/HCPCS: 71250 ==

== ENCOUNTER → 2024-01-17 13:41 | Outpatient (REF) | payer MEDICARE, SELFPAY | LOC: HWRCS 13:41 | PROVIDERS: ATTENDING PHYSICIAN Internal Medicine | DX: R01.1 Cardiac murmur, unspecified (principal) | CPT/HCPCS: 93306 ==

== ENCOUNTER → 2024-02-05 07:58 | Outpatient (REF) | payer MEDICARE, SELFPAY ==
[2024-02-05 10:14] LABS: IgA 265 mg/dl (70-400); IgG 918 mg/dl (700-1600); IgM 50 mg/dl (40-230)
[2024-02-07 00:24] LABS: IgE 10 kU/L (<=214)
[2024-02-07 22:58] LABS: Alpha-1-Antitrypsin 154 mg/dL (90-200); Alpha-1-Antitrypsin Phenotype M1M1
== END ==
LOC: REG 07:58
PROVIDERS: ATTENDING PHYSICIAN Internal Medicine Critical Care Medicine; FAMILY PHYSICIAN Internal Medicine
DX: J39.8 Other specified diseases of upper respiratory tract (principal); J47.9 Bronchiectasis, uncomplicated; E87.6 Hypokalemia
CPT/HCPCS: 36415; 82103; 82104; 82784; 82785

== ENCOUNTER → 2024-07-02 13:45 | Outpatient (REF) | payer MEDICARE, SELFPAY | LOC: HWRAD 13:45 | PROVIDERS: ATTENDING PHYSICIAN Internal Medicine Critical Care Medicine; FAMILY PHYSICIAN Internal Medicine | DX: J18.9 Pneumonia, unspecified organism (principal) | CPT/HCPCS: 71250 ==

== ENCOUNTER → 2025-04-10 10:34 | Outpatient (REF) | payer MEDICARE, SELFPAY | LOC: HWRCS 10:34 | PROVIDERS: ATTENDING PHYSICIAN Internal Medicine | DX: I35.0 Nonrheumatic aortic (valve) stenosis (principal) | CPT/HCPCS: 93306 ==

== ENCOUNTER 2025-05-16 14:20 | Emergency (ER) | payer MEDICARE, SELFPAY ==
[2025-05-16] VITALS (8 sets, daily range): BP systolic 168–250; BP diastolic 84–121; BMI 19.5
[2025-05-16 14:58] LABS: Hematocrit 39.6 % (37.0-47.0); Hemoglobin 12.5 g/dL (12.0-16.0); Mean Corp Hgb Conc. 31.6 g/dL (33.0-37.0); Mean Corpuscular Volume 90.2 fL (81.0-99.0); Nucleated Red Blood Cells % 0 %; Platelet Count 297 10^3/uL (130-400); Red Cell Dist. Width 13.5 % (11.5-14.5)
[2025-05-16 15:13] LABS: ALT (SGPT) 19 U/L (0-35); AST (SGOT) 29 U/L (14-36); Albumin 3.9 g/dl (3.5-5.0); Alkaline Phosphatase 80 U/L (38-126); Blood Urea Nitrogen 19 mg/dl (7-17); Calcium 9.4 mg/dl (8.4-10.2); Carbon Dioxide 28 mmol/L (22-30); Chloride 104 mmol/L (98-107); Glucose 100 mg/dl (70-99); Potassium 3.7 mmol/L (3.5-5.1); Sodium 135 mmol/L (135-145); Total Protein 6.7 g/dl (6.3-8.2); eGFR > 60.00
--- NOTE | 2025-05-16 18:13 | EDRN ---
the pt was unable to tolerate blood pressures being taken on upper arms, when this RN would start taking the blood pressure automatically the pt would state to take off the BP cuff as it was too tight and hurt the pt, this RN attempted to take BP
manually on upper arms and the pt still could not tolerate it, this RN offered to take the pts blood pressure on the pts forearm and the pt was able to tolerate it, the pt was hypertensive, the pt mentioned to this RN that her blood pressures were
different in both arms earlier, this RN took the pts blood pressure on both arms and they were different and this RN notified Dr. Hernandez, no s/s of distress, no c/o chest pain, no c/o SOB, no c/o headache or neck pain, awaiting for the pt to be seen,
will continue to monitor the pt closely
--- NOTE | 2025-05-16 18:32 | EDRN ---
provider Dr. Hernandez notified of the pts continued hypertension, awaiting for the pt to be seen
--- NOTE | 2025-05-16 19:18 | ED.GENMED ---
History of Present Illness
General
Chief Complaint: Blood Pressure Problem
Source: patient and spouse
Time Seen by Provider: 05/16/25 19:00
History of Present Illness
History of Present Illness:
This patient is an 85-year-old female presents emergency department after she was noted to have an elevated blood pressure 220s over 110s after completing pulmonary function test earlier today. Patient states she checks her blood pressure regularly
at home and the last systolic pressure yesterday was 127. She is compliant with her medications, and ARB that she takes every evening. She denies recent changes to her medications. She states 'I feel fine', she also states 'I am not going to get
admitted to [place]?'. She denies any symptoms such as headache, neck pain, visual changes, neck pain, chest pain, shortness of breath, abdominal pain, numbness, tingling, focal weakness, abdominal pain, or other complaints.
Past History
Past History
ED Past Medical History: Asthma, COPD, HTN, Hypercholesterolemia, Valvular disease () and Other (tracheomalacia)
ED Past Surgical History: Appendectomy, Orthopedic and Tonsilectomy
Patient has exhibited threatening behavior?: No
Social History
Tobacco: Non-smoker
Alcohol: None
Drug: None
Personal:
Living: with family
Employment: Retired
Family History
Family History: Unable to obtain
Phy Exam
Physical Exam
Physical Exam:
GENERAL: Alert , in no apparent distress
EYE: pupils equal and reactive, EOMI, no nystagmus, no photophobia
NECK: Supple, no significant adenopathy.
ENT: o/p clr, mmm.
CARDIAC: Regular rate and rhythm, systolic murmur noted.
LUNGS: Clear breath sounds bilaterally, no acute respiratory distress, no wheezes/rales/rhonchi
ABDOMEN: Soft, without focal tenderness, no r/g, no cvat
NEUROLOGICAL: Alert and oriented, no focal neuro deficits, cranial nerves II through XII intact, [id number] normal, motor 5 out of 5, sensory
SKIN: Warm and dry, skin intact.
MUSCULOSKELETAL: No edema, well perfused.
PSYCH: Normal and appropriate interaction.
Course
Orders/Labs/Results
Orders:
Orders
05/16/25 14:29
EKG [Electrocardiogram (*1)] Urgent
Reason for Study: Chest Pain
EKG- Treatment ONCE
05/16/25 14:37
Complete Blood Count/With Diff Urgent
Comprehensive Metabolic Panel Urgent
05/16/25 19:00
Irbesartan [Avapro] 300 mg PO NOW STA
05/16/25 19:18
Irbesartan [Avapro] 300 mg PO NOW STA
05/16/25 19:30
CR Chest - 2 Views Urgent
Comment:
Reason For Exam: htn
Abnormal Lab Results
05/16/25
14:37
MCHC 31.6 L g/dL
(33.0-37.0)
Abs Immat Gran (auto) 0.1 H 10^3/uL
(0-0.05)
Absolute Monos (auto) 0.7 H 10^3/uL
(0.1-0.6)
BUN 19 H mg/dl
(7-17)
Glucose 100 H mg/dl
(70-99)
05/16/25 14:37
05/16/25 14:37
Vital Signs
Initial and Last Documented VS:
Initial Vital Signs
BP
168/94
05/16/25 14:25
Last Documented Vital Signs
Pulse Resp BP Pulse Ox
75 20 178/100 98
05/16/25 19:43 05/16/25 18:45 05/16/25 19:43 05/16/25 19:23
*Pulse Oximetry
SaO2: 98
Oxygen Mode of Delivery: Room air
Patient hypoxic: no
*Critical Care Note
Total Time (30-74mins, 75-104mins- exclusive of procedures): Not Applicable
Update Note
Update Note:
Patient presents to the Emergency Department with asymptomatic hypertension
Number and Complexity of Problems Addressed at the Encounter
� Chronic conditions affecting care:
� Acute Exacerbation and/or Progression of Chronic Illness:
� Differential Diagnosis includes: But not limited to medication noncompliance, intolerance of current hypertensive medications, nonspecific hypertension, etc. etc.
Amount and/or Complexity of Data to be Reviewed and Analyzed
� I performed an independent evaluation of and my interpretation is:
EKG: Read by me, normal sinus rhythm with PAC, normal axis, no acute ischemia
CT:
Xrays: Read by me chest x-ray NAD, mediastinum within normal limits
Laboratory Studies: Generally unremarkable
Other:
� Review of other/old records reveals:
� Clinical information was obtained by an independent historian:
� Prescriptions/Medications Considered but not given:
� Further testing considered but not performed:
Risk of Complications and/or Morbidity or Mortality of Patient Management
� Social determinants of health affecting care:
� Discussion with other providers (PCP, Hospitalists, Consultants, etc):
� Escalation of care including admission/observation vs risk of discharge considered: 8:30 PM repeat blood pressure 178/84, patient walked to bathroom with ease, remains well-appearing without any symptoms. Strongly encouraged
patient to follow-up closely with her doctor, continue her usual medications. Given this is asymptomatic hypertension, did describe to patient and importance of careful monitoring, avoidance of rapid lowering of blood pressure given risk of
precipitating injury such as stroke, cardiac event, etc. Discussed with them reasons to return the emergency department.
ED Attending Note
-
Portions of this chart may have been created with voice recognition software.� Occasional wrong word or��sound alike� substitutions may have occurred due to the inherent limitations of voice recognition software.
Discharge Plan
Departure
Patient Disposition: Home (Routine Discharge)
Date of Disposition: 05/16/25
Time of Disposition: 20:31
Patient with high blood pressure during this ER visit?: Yes
Condition: Good
Discharge Problem:
Hypertension
Instructions: BLOOD PRESSURE
Prescriptions:
No Action
albuterol sulfate 1 PUFF HFA aerosol inhaler
1 puff inhalation R Q4HPRN PRN (Reason: sob)
Incruse Ellipta 62.5 MCG blister with device
2 puff IH R DAILY
atorvastatin 20 MG tablet
20 mg PO QPM
oxybutynin chloride 5 MG tablet extended release 24hr
5 mg PO DAILY@1700
irbesartan 300 MG tablet
300 mg PO DAILY@1700
Lumigan 1 DROP drops
1 drp BOTH EYES HS
guaifenesin [Mucus Relief ER] 600 MG tablet extended release 12hr
600 mg PO DAILYPRN PRN (Reason: cough)
fluticasone furoate-vilanterol [Breo Ellipta] 1 EACH blister with device
2 puff IH R DAILY
albuterol sulfate 2.5 mg /3 mL (0.083 %) solution for nebulization
2.5 mg inhalation R Q4HPRN PRN (Reason: shortness of breath or wheezing)
Referrals:
Stone Guerrier MD [Family Provider] - 05/19/25
Activity Restrictions/Additional Instructions:
IF YOU DEVELOP CHEST PAIN, SEVERE HEADACHE, NUMBNESS, VISUAL CHANGES, ABDOMINAL PAIN, WEAKNESS, CHANGE IN SPEECH, CHANGE IN BALANCE, OR OTHER WORRISOME SIGNS, PLEASE RETURN TO THE ER IMMEDIATELY! IS IMPORTANT THAT YOU MONITOR YOUR BLOOD PRESSURE
CLOSELY AT HOME AND SEE YOUR DOCTOR.
Interventions
Interventions:
*Risk Screen - Suicide Last Done: 05/16/25 18:10
*General Assessment Last Done: 05/16/25 18:10
*Neglect/Abuse Screening Last Done: 05/16/25 18:10
*ED- Fall Risk Assessment Last Done: 05/16/25 18:10
*ED COVID-19 Vaccine History Last Done: 05/16/25 18:10
*ED Influenza Vaccine History Last Done: 05/16/25 18:10
ED- Cardiac Assessment Last Done: 05/16/25 20:20
ED- Neurological Assessment Last Done: 05/16/25 20:20
ED- Pulmonary Assessment Last Done: 05/16/25 20:20
Discharge Date and Time
Print Language: BRITISH
[2025-05-16] MEDS: AVAPRO 300 MG PO (19:43)
== END 2025-05-16 21:06 | disposition home or self-care (01) ==
LOC: EMR 14:20
PROVIDERS: Emergency Medicine; EMERGENCY PHYSICIAN Emergency Medicine; FAMILY PHYSICIAN Internal Medicine
DX: I10 Essential (primary) hypertension (principal); E78.00 Pure hypercholesterolemia, unspecified; J44.89 Other specified chronic obstructive pulmonary disease; Z90.49 Acquired absence of other specified parts of digestive tract
CPT/HCPCS: 99283; 71046; 80053; 85025; 93005